=== PATIENT | male | born 1975 | race Caucasian/White ===

== ENCOUNTER 2020-08-02 21:16 | Emergency (ER) | payer MEDICAID ==
[~2020-08-02] VITALS: Ht 170.2 cm; Wt 78.5 kg
--- NOTE | 2020-08-02 21:30 | NUR ---
Patient walked into ER with steady gait A/Ox3 c/o intermittent HOLM x3 days with concern of BP 157/111 last night.
--- NOTE | 2020-08-02 21:32 | NUR ---
Dr. Soto at bedside for MSE.
[2020-08-02] MEDS ORDERED: HYDROCODONE/APAP 10-325 MG TABLET PO ONE (21:45)
[2020-08-02] MEDS ORDERED: ONDANSETRON ODT 4 MG TAB.RAPDIS SL ONE (21:45)
[2020-08-02] MEDS ORDERED: HYDROCODONE/APAP 10-325 MG TABLET ONE (21:51)
[2020-08-02] MEDS ORDERED: ONDANSETRON ODT 4 MG TAB.RAPDIS ONE (21:51)
[2020-08-02] MEDS ORDERED: HYDR-4209 PO (22:21)
[2020-08-02 22:23] LABS: *BILIRUBIN,URIN NEGATIVE (NEGATIVE); *BLOOD, URINE NEGATIVE (NEGATIVE); *CLARITY,URINE CLEAR (CLEAR); *COLOR,URINE YELLOW (YELLOW); *KETONES,URINE NEGATIVE (NEGATIVE); *UROBILINOGEN,URINE 0.2 E.U./dl (NORMAL); LEUKOCYTE ESTERASE ,URINE NEGATIVE (NEGATIVE); NITRITE, URINE NEGATIVE (NEGATIVE); PH,URINE 5.5 (5.0-8.0); UGLUCOSE NEGATIVE (NEGATIVE)
--- NOTE | 2020-08-02 22:49 | NUR ---
Dr. Soto at bedside.
--- NOTE | 2020-08-02 23:00 | NUR ---
Patient discharged to home in stable condition. Written and verbal after care instructions given. Patient verbalizes understanding of instructions. Stressed follow up or return to ER for worsening s/s. Pt ambulated out of the ER with steady gait. All belongings with pt.
[2020-08-02 23:09] VITALS: BP 130/76
== END 2020-08-02 23:00 | disposition home or self-care (01) ==
LOC: ER 21:16
DX: R51.9 Headache, unspecified (principal); R03.0 Elevated blood-pressure reading, without diagnosis of hypertension; Z82.49 Family history of ischemic heart disease and other diseases of the circulatory system
CPT/HCPCS: 93005; A4663; Q0162